=== PATIENT | male | born 1950 | race Caucasian/White ===

== ENCOUNTER 2017-01-28 11:30 | Inpatient (IN) | payer MEDICARE ==
[2017-02-03] MEDS ORDERED: MECLIZINE 25 MG TABLET PO ONE (06:00)
[2017-02-03] MEDS ORDERED: FAMOTIDINE 20MG TABLET PO ONE (06:00)
[2017-02-03] MEDS ORDERED: VANCOMYCIN HCL 1,000 MG in 0.9 % SODIUM CHLORIDE 250ML 250 ML IVPB ONE (06:00)
[2017-02-03] MEDS ORDERED: CELECOXIB 100 MG CAPSULE PO ONE (06:00)
[2017-02-03] MEDS ORDERED: CEFAZOLIN 2 Gram 2 GM/50 ML BAG IVPB ONE (06:00)
[2017-02-03] MEDS ORDERED: METOCLOPRAMIDE 10 MG TABLET PO ONE (06:00)
[2017-02-03] MEDS ORDERED: TRANEXAMIC ACID 1,000 MG/10 ML ML IV ONE (10:43)
[2017-02-03] MEDS ORDERED: 0.9 % SODIUM CHLORIDE 10 ML VIAL IVP ONE (10:43)
[2017-02-03 11:34] LABS: ABO GROUP O; ANTIBODY SCREEN NEGATIVE (NEGATIVE); RH TYPE POSITIVE
[2017-02-03] MEDS ORDERED: HYDROMORPHONE HCL 2 MG/ML VIAL IV ONE (14:00)
[2017-02-03] MEDS ORDERED: PROPOFOL 10 MG/ML VIAL IV ONE (14:00)
[2017-02-03] MEDS ORDERED: BUPIVACAINE 0.75% W/EPI MPF 30ML VIAL IVP ONE (14:00)
[2017-02-03] MEDS ORDERED: FENTANYL PF 100MCG/2ML VIAL IV ONE (14:00)
[2017-02-03] MEDS ORDERED: *PACU ONLY* KETAMINE HCL 10 MG/ML (20ML) VIAL IV ONE (14:00)
[2017-02-03] MEDS ORDERED: KETOROLAC 30 MG/ML VIAL IVP ONE (14:00)
[2017-02-03] MEDS ORDERED: MIDAZOLAM HCL 2MG/2ML VIAL IV ONE (14:00)
[2017-02-03] MEDS ORDERED: AL HYDROX/MAG HYDROX 30ML UD PO PRN (15:10)
[2017-02-03] MEDS ORDERED: HYDROMORPHONE HCL 1MG/ML **SYRINGE IM PRN (15:10)
[2017-02-03] MEDS ORDERED: KETOROLAC 30 MG/ML VIAL IVP PRN ×2 (15:10)
[2017-02-03] MEDS ORDERED: HYDROMORPHONE HCL 2 MG/ML VIAL IM PRN (15:10)
[2017-02-03] MEDS ORDERED: HYDROCODONE/APAP 10/325 TABLET PO PRN ×2 (15:10)
[2017-02-03] MEDS ORDERED: NALOXONE 0.4 MG/1 ML VIAL IVP PRN (15:10)
[2017-02-03] MEDS ORDERED: MAGNESIUM HYDROXIDE 30 ML UDC PO PRN (15:10)
[2017-02-03] MEDS ORDERED: DIPHENHYDRAMINE HCL 25 MG CAPSULE PO PRN (15:10)
[2017-02-03] MEDS ORDERED: ACETAMINOPHEN W/ CODEINE 300MG/60MG TABLET PO PRN ×2 (15:10)
[2017-02-03] MEDS ORDERED: BISACODYL 10 MG SUPP RC PRN (15:10)
[2017-02-03] MEDS ORDERED: ACETAMINOPHEN 325 MG TAB PO PRN (15:10)
[2017-02-03] MEDS ORDERED: ZOLPIDEM TARTRATE 5 MG TABLET PO PRN (15:10)
[2017-02-03] MEDS ORDERED: FLUTICASONE PROPIONATE 50MCG NASAL 16 GM BTL PRN (16:24)
[2017-02-03] MEDS: POTASSIUM CHLORIDE/D5-0.9%NACL 20 MEQ/1,000 ML BAG IV SCH (18:09)
[2017-02-03] MEDS: CEFAZOLIN 2 Gram 2 GM/50 ML BAG IVPB SCH (20:59)
[2017-02-03] MEDS: ONDANSETRON HCL IV 4 MG/2 ML VIAL IVP PRN (21:31)
[2017-02-03] MEDS ORDERED: ASPIRIN 81 MG TABEC PO SCH (22:00)
[2017-02-03] MEDS ORDERED: MONTELUKAST SODIUM 10MG TABLET PO SCH (22:00)
[2017-02-03] MEDS ORDERED: SIMVASTATIN 20 MG TABLET PO SCH (22:00)
[2017-02-03] MEDS ORDERED: ATENOLOL 25 MG TABLET PO SCH (22:00)
[2017-02-03] MEDS ORDERED: LORATADINE 10 MG TABLET PO SCH (22:00)
[2017-02-03] MEDS ORDERED: PANTOPRAZOLE SODIUM 40 MG TABLET PO SCH (22:00)
[2017-02-03] MEDS: GABAPENTIN 300 MG CAPSULE PO SCH (22:37)
[2017-02-03] MEDS: DOCUSATE SODIUM 100 MG CAPSULE PO SCH (22:37)
[2017-02-04] MEDS: ONDANSETRON HCL IV 4 MG/2 ML VIAL IVP PRN (02:46)
[2017-02-04] MEDS: POTASSIUM CHLORIDE/D5-0.9%NACL 20 MEQ/1,000 ML BAG IV SCH ×2 (03:34→10:53)
[2017-02-04] MEDS: CEFAZOLIN 2 Gram 2 GM/50 ML BAG IVPB SCH (04:49)
[2017-02-04 06:54] LABS: HEMATOCRIT 32.9 % (42.0-52.0); HEMOGLOBIN 10.5 gm/dl (14.0-18.0)
[2017-02-04 07:00] LABS: BLOOD UREA NITROGEN 12 mg/dL (8-23); CREATININE 0.7 mg/dL (0.7-1.2); EST GLOMERULAR FILTRATION RATE > 60 mL/min; GLUCOSE,RANDOM 126 mg/dL (74-109)
[2017-02-04] MEDS: GABAPENTIN 300 MG CAPSULE PO SCH (09:33)
[2017-02-04] MEDS: DOCUSATE SODIUM 100 MG CAPSULE PO SCH (09:34)
[2017-02-04] MEDS ORDERED: HYDROCHLOROTHIAZIDE 12.5 MG CAPSULE PO SCH (10:00)
[2017-02-04] MEDS ORDERED: RIVAROXABAN 10 MG TABLET PO SCH (10:00)
[2017-02-04] MEDS ORDERED: LISINOPRIL 20 MG TABLET PO SCH (10:00)
[2017-02-04] MEDS ORDERED: FERROUS SULFATE 325 MG TAB PO SCH (10:00)
--- NOTE | 2017-02-04 10:47 | Rehab Evaluation ---
Patient Information - Patient Information Diagnosis: OA right knee Ordered Treatment: PT Evaluate and Treat Status: Initial Evaluation Surgery: Yes (Right TKA) Date of Surgery: 02/03/17 Past Medical/Surgical Hx: PAST MEDICAL/SURGICAL HISTORY Past Surgical History kidney stone removal Bilat CTR c scope PMH - Respiratory Hx Respiratory Disorders Yes Hx Asthma Yes Hx Bronchitis Yes Hx Pneumonia Yes Comment: uses inhaler only when he is sick PMH - Cardiovascular Hx Cardiovascular Disorders Yes Hx Hypertension Yes: on meds good control Exercise Tolerance Good PMH - Neuro Hx Neurological Disorders Yes Hx Syncope Yes: vasovagal 2-3 years ago PMH - GI Hx Gastrointestinal Disorders Yes Hx Gastroesophageal Reflux Yes PMH - Hx Genitourinary Disorders Yes Hx Kidney Stones Yes PMH - Endocrine Hx Endocrine Disorders No Hx Diabetes No Hx Thyroid Disease No PMH - Musculoskeletal Hx Musculoskeletal Disorders Yes Hx Arthritis Yes PMH - Psych Hx Psychiatric Problems No PMH - Hematology/Oncology Hx Hematology/Oncology No Disorders Social History: Detail (Lives with and has three steps into house, rail to assist into house. House all set-up for him to come home with and starts home PT tomorrow.) Precautions: [place], Fall - Time With Patient Total Time Spent With Patient (Min): 30 Treatment Procedures: Detail (Patient seen bedside, sitting up in chair with warm blanket on shoulders secondary to cold today. Worked on exercises seated in chair: marching type step, LAQ, ankle pumps and isometrics with good tolerance. Sit to stand independently, then ambulated with standard walker about 40 feet to stairs, ambulated down three steps with folded walker and rail with good technique, pivoted back around and ambulated back up three steps with folded walker, rail and CGA only. Ambulated another 75 feet with standard walker then back to room to rest. Opted to get into bed and replaced cryocuff on knee but not compressive stockings on legs secondary to dressed. Replaced tray table and call light close.) Subjective Information - Subjective Information Per Patient (Doing pretty well today and only just now starting to take pain meds. Cold.) Objective Data - Pain Pain Present: Yes Pain Scale Used: Numeric (1 - 10) (3-4/10) - Mental Status Patient Orientation: Oriented x3 - Visual Perception Appears within normal limits for therapeutic activities - ROM Within normal limits (except knee -10 degrees to about 60 degrees.) - Strength/Tone Within normal limits (Quads right 3-/5, hamstrings 4/5, right hip 3/5) - Coordination Appears within normal limits for therapeutic activities (Pretty good today and ambulating well.) - Bed Mobility Independent (Into and out of bed without difficulty.) - Transfers Independent (Sit to stand with SBA only. Stand to sit independently as well.) - Balance Balance Sitting: Good Balance Standing: Good - Sensation Intact - Gait Detail (Using standard walker for gait independently but tends to step into walker too far. Safe so far. Able to do stairs already and did well with rail and folded walker.) - Special Tests No Therapy Assessment - Therapy Assessment Detail (Patient already doing great with exercises, mobility, gait on flat and steps. Has passed all skills needed to be discharged home when nursing and doctor says he is ready.) Patient Education - Patient Education Teaching Topic: Equipment Use, Exercise/Activity Response: Return Demonstration Teaching Method: Discussion Teaching Recipient: Patient, Family Barriers To Learning: None Problem List - Problem List Physical Therapy Problem List: Detail (Some decreased endurance and needs some assist with exercises. Will have home health to progress same.) Goals - Goals Physical Therapy Goals: Continue PT for independence with mobility, gait community distances, exercises as able to tolerate, safety with all activities. Prognosis - Prognosis Good (Very good and patient really has already passed all skills to go home safely with family.) Plan - Plan Physical Therapy Plan: Patient will be seen this afternoon for increase in endurance with gait if still here. Has passed skills to be discharged home if that is best for family.
--- NOTE | 2017-02-04 12:51 | Rehab Evaluation ---
Patient Information - Patient Information Diagnosis: OA right knee Ordered Treatment: OT Evaluate and Treat Status: Initial Evaluation Surgery: Yes (Right TKA) Date of Surgery: 02/03/17 Past Medical/Surgical Hx: PAST MEDICAL/SURGICAL HISTORY Past Surgical History kidney stone removal Bilat CTR c scope PMH - Respiratory Hx Respiratory Disorders Yes Hx Asthma Yes Hx Bronchitis Yes Hx Pneumonia Yes Comment: uses inhaler only when he is sick PMH - Cardiovascular Hx Cardiovascular Disorders Yes Hx Hypertension Yes: on meds good control Exercise Tolerance Good PMH - Neuro Hx Neurological Disorders Yes Hx Syncope Yes: vasovagal 2-3 years ago PMH - GI Hx Gastrointestinal Disorders Yes Hx Gastroesophageal Reflux Yes PMH - Hx Genitourinary Disorders Yes Hx Kidney Stones Yes PMH - Endocrine Hx Endocrine Disorders No Hx Diabetes No Hx Thyroid Disease No PMH - Musculoskeletal Hx Musculoskeletal Disorders Yes Hx Arthritis Yes PMH - Psych Hx Psychiatric Problems No PMH - Hematology/Oncology Hx Hematology/Oncology No Disorders Premorbid Status: Detail (Pt lives with spouse in a 1 story house with basement , he mainly stays on the 1st floor. He has 3 steps and 1 railing at the entrance. He has a walk-in shower with corner seat and grab bar and a standard height toilet without a grab bar. His is responsible for home mgmt, meal prep and laundry, pt is responsible for caring for chickens and dog. He has a standard walker.) Social History: Detail (Supportive .) Precautions: [place], Fall - Time With Patient Total Time Spent With Patient (Min): 35 Treatment Procedures: Detail (OT eval low complexity) Subjective Information - Subjective Information Per Patient Objective Data - Pain Pain Present: Yes (09/06) - Mental Status Patient Orientation: Oriented x3 - Visual Perception Appears within normal limits for therapeutic activities - ROM Within normal limits (Nick UE AROM WNL) - Strength/Tone Within normal limits (Nick UE strength WNL) - Coordination Appears within normal limits for therapeutic activities - Bed Mobility Independent (Ind with supine to sit) - Transfers Independent (Ind with sit to stand from EOB and chair.) - Balance Balance Sitting: Good Balance Standing: Good - Sensation Intact - Gait Detail (Pt ambulating in room with standard walker.) - ADL's/IADL's Detail (Pt educated re: adapted dressing techniques. He was able to demonstrate techniques and was Ind with total body dressing. Reviewed shower safety, pt verbalizes learning.) Therapy Assessment - Therapy Assessment Detail (Pt safe and Ind with self care activities using adapted techniques.) Problem List - Problem List Physical Therapy Problem List: Detail (Some decreased endurance and needs some assist with exercises. Will have home health to progress same.) Occupational Therapy Problem List: Detail (No current OT problems identified.) Goals - Goals Physical Therapy Goals: Continue PT for independence with mobility, gait community distances, exercises as able to tolerate, safety with all activities. Occupational Therapy Goals: No current OT goals identified. Prognosis - Prognosis Good Plan - Plan Physical Therapy Plan: Patient will be seen this afternoon for increase in endurance with gait if still here. Has passed skills to be discharged home if that is best for family. Occupational Therapy Plan: No further IP OT recommended. Thank you for this referral.
--- NOTE | 2017-02-04 15:53 | Operative Note ---
DATE OF SURGERY: 02/03/17 PREOPERATIVE DIAGNOSIS: END-STAGE ARTHROSIS OF THE RIGHT KNEE. POSTOPERATIVE DIAGNOSIS: END-STAGE ARTHROSIS OF THE RIGHT KNEE. PROCEDURE: CEMENTED RIGHT TOTAL KNEE ARTHROPLASTY USING BEGUM-NEPHEW VÍCTOR II COMPONENTS WITH A SIZE 6 OXINIUM FEMUR, A SIZE 5 STEM TIBIAL BASEPLATE, A 9 mm LIFT HIGHLY CROSSLINKED TIBIAL INSERT, AND A 35 MM ALL-PLASTIC PATELLA. STAFF SURGEON: PRESLEY COATES M.D. ANESTHESIA: SPINAL. PREPARATION: CHLORAPREP. INDIVIDUAL CONSIDERATIONS: NONE. PROCEDURE: The patient was taken to the Operating Room and placed supine on the operating table. He had a successful induction of a spinal anesthetic. His right lower extremity was prepped and draped in the usual fashion. Limb was elevated. The tourniquet was inflated to 250 mmHg. Sharp dissection was carried down through the skin and subcutaneous tissues. Small veins were coagulated with a Bovie. A medial arthrotomy was performed. Patella was everted and the knee was flexed. He had exposed bone in the patellofemoral compartment and exposed bone in the medial compartment especially on the femur although the x-rays did not look bad there. The fat pad was resected, ACL was sacrificed, provisional anterior meniscectomies were performed, and the capsule was released from the medial proximal tibia. The initial femoral packing machine pilot can router hole was then made freehand. The intramedullary femoral cutting jig was placed. It was cut in 7.0 degrees of valgus and set for a 10 mm resection and secured with pins. The initial transverse cut was then made. Skin guide was placed for the anterior and posterior packing machine pilot can router holes. It was found that a size 6 would be appropriate. The anterior and posterior cuts followed by chamfer cuts were made , osteophytes removed, and a size 6 trial was placed and found to fit well. The tibia was brought forward and the remainder of the meniscal remnants were removed with a Bovie. The extra-articular tibial cutting jig was placed and it was cut in neutral with a 3-degree AP slope. Care was taken to adjust for rotation and flexion using the extra-articular alignment guide and bony landmarks. It was set for a 9 mm resection and keyed off the high lateral side and secured with pins. When cutting the tibia, care was taken to preserve the PCL insertion on the tibia. Osteophytes were removed and it was found that a size 5 baseplate would fit appropriately. It was adjusted for rotation and secured with pins. With a size 6 femoral trial, the 9 mm lift trial , there was excellent motion and stability. Ligamentous balance, rotation, and alignment were thought to be normal. The femoral packing machine pilot can router holes were impacted and the triflange tibial stamp was impacted, and these trial components were removed. The tourniquet was let down briefly, good bleeders posteriorly, and then placed back up again. The patient had a thick patella and roughly 9 mm of bone was removed with the oscillating saw. A 35 patella fit easily and the three packing machine pilot can router holes were drilled. The knee was then thoroughly irrigated out with pulsatile Betadine and saline to remove any visual or palpable debris. Bony surfaces were then dried. A size 5 stemmed tibial baseplate was cemented into place, followed by impaction of a 9 mm lift tibial insert, followed by cementing in the size 6 Oxinium femur, followed by cementing of a 35 mm patella. Implant surfaces were compressed, excess cement was removed, and after the cement had set, there was excellent motion and stability, ligamentous balance, rotation, alignment, and patellofemoral tracking were normal. No lateral release was required. Again, thorough irrigation with pulsatile Betadine and saline. The tourniquet was let down. Hemostasis was obtained with a Bovie. The periosteum and subcutaneous were infiltrated with 30 mL of 0.5% Marcaine with Epinephrine. The capsule was then closed with a running #2 quill, the subcutaneous was closed with running 0 quill, and the skin was closed with sweetie. The patient did receive 1 gram of Tranexamic Acid preoperatively. I then mixed 1 gram of Tranexamic Acid with 40 mL of saline, injected it into the knee through a sterilely 18-gauge needle, and a sterile [place] compressive dressing, Aquacel- type, was applied. The patient tolerated the procedure well. Needle and sponge counts were correct. Estimated blood loss was minimal and he was taken back to the Recovery Room in good condition. There were no complications. JOB NUMBER: [id number] [facility]
--- NOTE | 2017-02-05 15:48 | Discharge Summary ---
DATE OF ADMISSION: 02/03/17 DATE OF DISCHARGE: 02/04/17 DATE OF SURGERY: 02/03/17 HISTORY: Mr. Drake is a delightful 66-year-old male who presents with end-stage arthrosis of his right knee. He was admitted for right total knee arthroplasty. Postoperatively, he did extremely well. His hospital course was unremarkable. Discharge hemoglobin was 10.5 and did not require transfusion. DISCHARGE INSTRUCTIONS: The plan is to discharge him home with the care of his family. Home PT and Visiting Nurse have been arranged. He will take Xarelto for 15 days for DVT prophylaxis. He will then follow-up with his regular Aspirin. He will be given [place] for pain. He will follow-up in my office in four weeks. Sutures will be removed by the Visiting Nurse in two weeks. FINAL DIAGNOSIS/PRIMARY DIAGNOSIS: END-STAGE ARTHROSIS OF THE RIGHT KNEE. OPERATIONS AND PROCEDURES: CEMENTED RIGHT TOTAL KNEE ARTHROPLASTY. DISCHARGE CONDITION: GOOD. JOB NUMBER: [id number] [facility]
== END 2017-02-04 11:45 | disposition home health service (06) | DRG 470 ==
LOC: MEDSURG 02-03 10:37
PROVIDERS: ADMIT Orthopaedic Surgery; ATTEND Orthopaedic Surgery
PROC: 0SRC06Z Replacement of Right Knee Joint with Oxidized Zirconium on Polyethylene Synthetic Substitute, Open Approach (ICD-10-PCS; principal; 2017-02-03 13:00)
DX: M17.11 Unilateral primary osteoarthritis, right knee (principal); I10 Essential (primary) hypertension; E78.00 Pure hypercholesterolemia, unspecified; Z87.891 Personal history of nicotine dependence
CPT/HCPCS: 80048; 85014; 85018; 86850; 86900; 86901; 97165; J1885; J2405; J3480; J3490; J7050

== ENCOUNTER 2018-08-24 10:36 | Day surgery (SDC) | payer MEDICARE ==
[~2018-08-24 10:36] MED LIST: CEFAZOLIN 2 Gram 2 GM/50 ML BAG IVPB SCH; CELECOXIB 100 MG CAPSULE PO ONE; FAMOTIDINE 20MG TABLET PO ONE; MECLIZINE 25 MG TABLET PO ONE; METOCLOPRAMIDE 10 MG TABLET PO ONE; RINGERS SOLUTION,LACTATED 1,000 ML IV ONE; VANCOMYCIN 1GM/200ML PREMIX 1 GM/200 ML PIGGYBACK IVPB ONE
[2018-08-24] MEDS ORDERED: MIDAZOLAM HCL 2MG/2ML VIAL IV ONE (10:37)
[2018-08-24] MEDS ORDERED: KETAMINE HCL 100MG/1ML VIAL INJ ONE (10:37)
[2018-08-24] MEDS ORDERED: DEXAMETHASONE 4 MG/ML 1ML VIAL IVP ONE (10:37)
[2018-08-24] MEDS ORDERED: TRANEXAMIC ACID 1,000 MG/10 ML ML IV ONE (10:37)
[2018-08-24] MEDS ORDERED: ROPIVACAINE HCL (NAROPIN) /PF 5MG/ML 20ML VIAL IV ONE (10:37)
[2018-08-24] MEDS ORDERED: PROPOFOL 10 MG/ML VIAL IV ONE (10:37)
[2018-08-24] MEDS ORDERED: GLYCOPYRROLATE 0.2 MG/ML ML IV ONE (10:37)
[2018-08-24] MEDS ORDERED: RINGERS SOLUTION,LACTATED 1,000 ML IV ONE ×2 (11:28→16:31)
[2018-08-24 11:46] LABS: ABO GROUP O; ANTIBODY SCREEN NEGATIVE (NEGATIVE); RH TYPE POSITIVE
[2018-08-24] MEDS ORDERED: BUPIVACAINE 0.5% W/EPI MPF 30 ML VIAL SQ ONE (15:19)
[2018-08-24] MEDS ORDERED: ACETAMINOPHEN W/ CODEINE 300MG/60MG TABLET PO PRN ×2 (16:24)
[2018-08-24] MEDS ORDERED: TRAMADOL HCL 50 MG TABLET PO PRN (16:24)
[2018-08-24] MEDS ORDERED: ACETAMINOPHEN 325 MG TAB PO PRN (16:24)
[2018-08-24] MEDS ORDERED: KETOROLAC 30 MG/ML VIAL IVP PRN ×2 (16:24)
[2018-08-24] MEDS ORDERED: NALOXONE 0.4 MG/1 ML VIAL IVP PRN (16:24)
[2018-08-24] MEDS ORDERED: ZOLPIDEM TARTRATE 5 MG TABLET PO PRN (16:24)
[2018-08-24] MEDS ORDERED: MAGNESIUM HYDROXIDE 30 ML UDC PO PRN (16:24)
[2018-08-24] MEDS ORDERED: AL HYDROX/MAG HYDROX 30ML UD PO PRN (16:24)
[2018-08-24] MEDS ORDERED: HYDROMORPHONE HCL 2 MG/ML VIAL IM PRN (16:24)
[2018-08-24] MEDS ORDERED: ONDANSETRON HCL IV 4 MG/2 ML VIAL IVP PRN (16:24)
[2018-08-24] MEDS ORDERED: DIPHENHYDRAMINE HCL 25 MG CAPSULE PO PRN (16:24)
[2018-08-24] MEDS ORDERED: BISACODYL 10 MG SUPP RC PRN (16:24)
[2018-08-24] MEDS ORDERED: HYDROCODONE/APAP 10/325 TABLET PO PRN ×2 (16:24)
[2018-08-24] MEDS: HYDROCHLOROTHIAZIDE 12.5 MG CAPSULE PO SCH (19:13)
[2018-08-24] MEDS: DOCUSATE SODIUM 100 MG CAPSULE PO SCH (21:49)
[2018-08-24] MEDS: LOSARTAN POTASSIUM 25 MG TABLET PO SCH (21:49)
[2018-08-24] MEDS: GABAPENTIN 300 MG CAPSULE PO SCH (21:49)
[2018-08-24] MEDS: CEFAZOLIN 2 Gram 2 GM/50 ML BAG IVPB SCH (21:55)
[2018-08-24] MEDS: POTASSIUM CHLORIDE/D5-0.9%NACL 20 MEQ/1,000 ML BAG IV SCH (21:59)
[2018-08-24] MEDS ORDERED: PANTOPRAZOLE SODIUM 40 MG TABLET PO SCH (22:00)
[2018-08-24] MEDS ORDERED: SIMVASTATIN 20 MG TABLET PO SCH (22:00)
[2018-08-24] MEDS ORDERED: TRAZODONE 50 MG TABLET PO SCH (22:00)
[2018-08-24] MEDS ORDERED: AMLODIPINE BESYLATE 5MG TAB PO SCH (22:00)
[2018-08-24] MEDS ORDERED: ATENOLOL 25 MG TABLET PO SCH (22:00)
[2018-08-25] MEDS: POTASSIUM CHLORIDE/D5-0.9%NACL 20 MEQ/1,000 ML BAG IV SCH (01:31)
[2018-08-25] MEDS: CEFAZOLIN 2 Gram 2 GM/50 ML BAG IVPB SCH ×2 (05:04→14:22)
[2018-08-25] MEDS ORDERED: PANTOPRAZOLE SODIUM 40 MG TABLET PO SCH (07:00)
[2018-08-25] MEDS ORDERED: LEVOTHYROXINE SODIUM 125 MCG TABLET PO SCH (07:00)
[2018-08-25 07:12] LABS: HEMATOCRIT 37.5 % (42.0-52.0); HEMOGLOBIN 12.6 gm/dl (14.0-18.0)
[2018-08-25 07:26] LABS: BLOOD UREA NITROGEN 12 mg/dL (8-23); CREATININE 0.9 mg/dL (0.7-1.2); EST GLOMERULAR FILTRATION RATE > 60 mL/min; GLUCOSE,RANDOM 169 mg/dL (74-109)
[2018-08-25] MEDS: GABAPENTIN 300 MG CAPSULE PO SCH (09:34)
[2018-08-25] MEDS: LOSARTAN POTASSIUM 25 MG TABLET PO SCH (09:34)
[2018-08-25] MEDS: DOCUSATE SODIUM 100 MG CAPSULE PO SCH (09:34)
[2018-08-25] MEDS: HYDROCHLOROTHIAZIDE 12.5 MG CAPSULE PO SCH (09:34)
[2018-08-25] MEDS ORDERED: RIVAROXABAN 10 MG TABLET PO SCH (10:00)
[2018-08-25] MEDS ORDERED: DULOXETINE HCL 30 MG CAPSULE.DR PO SCH (10:00)
[2018-08-25] MEDS ORDERED: METOPROLOL SUCC 25 MG TAB.ER PO SCH (10:00)
[2018-08-25] MEDS ORDERED: FERROUS SULFATE 325 MG TAB PO SCH (10:00)
[2018-08-25] MEDS ORDERED: CHOLECALCIFEROL 1,000 UNIT TABLET PO SCH (10:00)
--- NOTE | 2018-08-25 11:29 | Rehab Evaluation ---
Patient Information - Patient Information Diagnosis: L knee DJD Ordered Treatment: PT Evaluate and Treat Status: Initial Evaluation Surgery: Yes (L knee TKA) Date of Surgery: 08/24/18 Past Medical/Surgical Hx: PAST MEDICAL/SURGICAL HISTORY Surgery to Affected Area? No Recent Surgery? Past Surgical History RTKA 02-03-17 kidney stone removal 1977 Bilat CTR in 1999 (right hand) and in in (Left hand) c scope Lithotropsy 06/2018 PMH - Respiratory Hx Respiratory Disorders Yes Hx Asthma Yes: and hay fever Hx Bronchitis Yes Hx Pneumonia Yes: 2015 Comment: uses inhaler only when he is sick PMH - Cardiovascular Hx Cardiovascular Disorders Yes Hx Hypertension Yes: on meds good control Exercise Tolerance Fair PMH - Neuro Hx Neurological Disorders Yes Hx Syncope Yes: vasovagal 2-3 years ago PMH - GI Hx Gastrointestinal Disorders Yes Hx Gastroesophageal Reflux Yes PMH - Hx Genitourinary Disorders Yes Hx Kidney Stones Yes: lithotropsy in 06/2018 Comment: Had to pass a clot from kidneys from a kidney stone removal in 1977 PMH - Endocrine Hx Endocrine Disorders No Hx Diabetes No Hx Thyroid Disease No PMH - Musculoskeletal Hx Musculoskeletal Disorders Yes Hx Arthritis Yes Hx Musculoskeletal Disease Yes: DJD, spinal stenosis PMH - Psych Hx Psychiatric Problems No PMH - Hematology/Oncology Hx Hematology/Oncology No Disorders Premorbid Status: Detail (The patient was independent with all mobility prior to surgery.) Social History: Detail (The patient lives with spouse in a one story house with 3 -4 steps at the enterance with one railing. The bathroom is equipped with a walk in shower with shower bench and standard height toilet and no grab bars. The patient has a standard walker and standard cane.) Precautions: [place], Fall, Other (WBAT on the L LE) - Time With Patient Total Time Spent With Patient (Min): 30 Treatment Procedures: Detail (Initial Evaluation, gait training) Subjective Information - Subjective Information Per Patient (The patient had complaints of L knee pain, level 2 using 0-10 pain scale.) Objective Data - Mental Status Patient Orientation: Oriented x3 - Visual Perception Appears within normal limits for therapeutic activities - ROM Not within normal limits (The patient's L knee AROM was limited as to be expected s/p surgery. All other AROM is WNL.) - Strength/Tone Not within normal limits (The patient's L LE strength was not tested s/p surgery however was functional ie: patient lifted LE in and out of bed. R LE strength was functional.) - Bed Mobility Independent (The patient was independent with supine to and from sit transfer and scooting up in bed.) - Transfers Independent (The patient was independent with sit to and from stand transfer.) - Balance Balance Sitting: Good Balance Standing: Good - Gait Detail (The patient ambulated with standard walker WBAT on the L LE a distance of 134 feet x 1 independently. The patient ambulated on 3 stairs with supervision for safety using proper technique.) Therapy Assessment - Therapy Assessment Detail (The patient was independent with bed mobility, transfers and ambulation. The patient has met all inpatient goals and is discharged from inpatient PT.) Patient Education - Patient Education Teaching Topic: Exercise/Activity (The patient completed the following TKA HEP including seated and supine heel slides, ankle pumps, quad sets, hamstring sets, SLR, and gluteal sets.) Response: Return Demonstration Teaching Method: Demonstration, Handout Teaching Recipient: Patient Barriers To Learning: None Problem List - Problem List Physical Therapy Problem List: Detail (Decreased L knee AROM and strength as to be expected following surgery.) Goals - Goals Physical Therapy Goals: The patient has met all inpatient PT goals and is to receive Home PT. Prognosis - Prognosis Good Plan - Plan Physical Therapy Plan: The patient is discharged from inpatient PT and is to receive Home PT services.
--- NOTE | 2018-08-25 11:55 | Rehab Evaluation ---
Patient Information - Patient Information Diagnosis: L knee DJD Ordered Treatment: OT Evaluate and Treat Status: Initial Evaluation Surgery: Yes (L knee TKA) Date of Surgery: 08/24/18 Past Medical/Surgical Hx: PAST MEDICAL/SURGICAL HISTORY Surgery to Affected Area? No Recent Surgery? Past Surgical History RTKA 02-03-17 kidney stone removal 1977 Bilat CTR in 1999 (right hand) and in in (Left hand) c scope Lithotropsy 06/2018 PMH - Respiratory Hx Respiratory Disorders Yes Hx Asthma Yes: and hay fever Hx Bronchitis Yes Hx Pneumonia Yes: 2015 Comment: uses inhaler only when he is sick PMH - Cardiovascular Hx Cardiovascular Disorders Yes Hx Hypertension Yes: on meds good control Exercise Tolerance Fair PMH - Neuro Hx Neurological Disorders Yes Hx Syncope Yes: vasovagal 2-3 years ago PMH - GI Hx Gastrointestinal Disorders Yes Hx Gastroesophageal Reflux Yes PMH - Hx Genitourinary Disorders Yes Hx Kidney Stones Yes: lithotropsy in 06/2018 Comment: Had to pass a clot from kidneys from a kidney stone removal in 1977 PMH - Endocrine Hx Endocrine Disorders No Hx Diabetes No Hx Thyroid Disease No PMH - Musculoskeletal Hx Musculoskeletal Disorders Yes Hx Arthritis Yes Hx Musculoskeletal Disease Yes: DJD, spinal stenosis PMH - Psych Hx Psychiatric Problems No PMH - Hematology/Oncology Hx Hematology/Oncology No Disorders Premorbid Status: Detail (The patient was independent with all ADLs and mobility prior to surgery and driving.) Social History: Detail (The patient lives with spouse in a one story house with 3 -4 steps at the entrance with one railing on the left. The bathroom is equipped with a walk in shower, built-in shower bench, hand-held shower, and standard height toilet without grab bars. The patient has a standard walker and single-point cane.) Precautions: [place], Fall, Other (WBAT L LE) - Time With Patient Total Time Spent With Patient (Min): 12 (1 E (9:15 - 9:47)) Treatment Procedures: Detail (OT eval: low complexity) Subjective Information - Subjective Information Per Patient (Ok to see per TWYLA Elder. Pt agreeable to OT eval.) Objective Data - Pain Pain Present: No Pain Scale Used: Numeric (1 - 10) (0/10) - Mental Status Patient Orientation: Oriented x3 - Visual Perception Appears within normal limits for therapeutic activities - ROM Within normal limits - Strength/Tone Within normal limits - Coordination Appears within normal limits for therapeutic activities - Bed Mobility Independent (supine >< EOB) - Transfers Independent (sit >< stand from low surfaces to std. walker CGA progressing to MOD I) - Balance Balance Sitting: Good Balance Standing: Good - Sensation Intact - Gait Detail (Fxl mobility within bedroom with std. walker and CGA progressing to MOD I.) - ADL's/IADL's Detail (OT educ Pt on adaptive tech for LB dressing, Pt doff/dons underwear, socks, pants with MOD I, pullover shirt indep. Pt demos safety and MOD I with simulated walk-in shower TF and verbalizes understanding of kitchen, bathroom, and fxl mobility safety at home.) Therapy Assessment - Therapy Assessment Detail (Pt demos safety and MOD I with LB dressing and verbalizes safe tech. for home tasks with good safety awareness.) Patient Education - Patient Education Response: Return Demonstration, Verbalize Understanding Teaching Method: Discussion, Demonstration Teaching Recipient: Patient Barriers To Learning: None Problem List - Problem List Occupational Therapy Problem List: Detail (No further IP OT needs identified.) Goals - Goals Occupational Therapy Goals: No further IP OT needs/goals identified. Prognosis - Prognosis Good Plan - Plan Occupational Therapy Plan: No further IP OT needs/goals identified. DC IP OT. Rec. DC home with spouse when medically appropriate. Thank you for this referral.
[2018-08-26] MEDS ORDERED: LEVOTHYROXINE SOD 112 MCG TAB PO SCH (07:00)
[2018-08-26] MEDS ORDERED: LEVOTHYROXINE SODIUM 25 MCG TABLET PO SCH (07:00)
--- NOTE | 2018-08-26 07:50 | Operative Note ---
DATE OF SURGERY: 08/24/2018 PREOPERATIVE DIAGNOSIS: End-stage arthrosis of the left knee. POSTOPERATIVE DIAGNOSIS: End-stage arthrosis of the left knee. OPERATION: Cemented left total knee arthroplasty using [employer] II components with a size 6 Oxinium femur, a size 5 stem tibia baseplate, a 13 mm lipped highly crosslinked tibial insert, and a 35 mm all plastic patella. STAFF SURGEON: Michael Guidry MD ANESTHESIA: Spinal. PREPARATION: Chloraprep. INDIVIDUAL CONSIDERATIONS: None. PROCEDURE: The patient was taken to the operating room, placed supine on the operating room table. He had a successful induction of a spinal anesthetic. The left lower extremity was prepped and draped in the usual fashion. The patient had a midline approach to the knee. The limb was elevated and tourniquet was inflated to 250 mmHg. Sharp dissection carried down through skin and subcutaneous tissue. Small veins were coagulated with a Bovie. A medial arthrotomy was performed. The patella was everted and the knee was flexed. The patient had exposed bone at all 3 compartments. Fat pad was resected, ACL was sacrificed, and provisional anterior meniscectomies were performed. The capsule was released from the medial proximal tibia. The initial femoral commercial airplane pilot hole was then made freehand. The intramedullary femoral cutting jig was placed. It was cut in 7.0 degrees of valgus and adjusted for rotation for a 10 mm resection. The initial transverse cut was then made. The skin guide was placed in the anterior and posterior commercial airplane pilot holes. It was found that a size 6 would be appropriate. The anterior and posterior cuts followed by chamfer cuts were made. Osteophytes removed, and a size 6 trial was placed and found to fit well. The tibia was brought forward, and the remainder of the meniscal remnants removed with a Bovie. The extraarticular tibial cutting jig was placed. It was cut in neutral with a 3-degree AP slope. It was set for a 9 mm resection keyed off the high lateral side and secured with pins. When cutting the tibia, care was taken to preserve the PCL insertion on the tibia. It was found that a size 5 would be appropriate. It was adjusted for rotation and secured with pins. With a 13 mm trial and femoral trial, there was excellent motion and stability, ligamentous balance, rotation alignment were thought to be normal. Femoral commercial airplane pilot holes were impacted and tri-flange tibial stamp was impacted, and these trial components were removed. The patient had a relatively thick patella and roughly 9 mm of bone was resected accounting for bone loss and cartilage loss. It was found that a 35 patella would fit appropriately, and the 3 commercial airplane pilot holes were drilled. The tourniquet was let down briefly to get bleeders posteriorly and then placed back up again. The knee was then thoroughly irrigated out with pulsatile Betadine and saline to remove any visual or palpable debris. Bony surfaces were then dried. A size 5 stem tibia baseplate was cemented into place followed by impaction of the 13 mm lipped tibial insert followed by cementing in the size 6 Oxinium femur followed by cementing in the 35 mm patella. The implant surfaces were compressed, excess cement was removed. After the cement had set, there was excellent motion and stability, ligamentous balance, rotation alignment, and patellofemoral tracking were normal. No lateral release was required. After irrigation, tourniquet was let down. Hemostasis was obtained with a Bovie. I infiltrated the skin subcu, and periosteum with 30 mL of 0.5% Marcaine with epinephrine. The capsule was then closed with a running #2 quill, subcu was closed in layers with running 0 quill, skin was closed with sweetie. The patient did receive 1 g of tranexamic acid prior. I mixed 1 g of tranexamic acid with 30 mL of saline and injected into the knee through a sterile 18-gauge needle, and a sterile bulky compressive CHANO-type dressing was applied. The patient tolerated the procedure well. Needle and sponge counts were correct. Estimated blood loss was minimal, and he was taken back to recovery in good condition. There were no complications. JANEY
== END 2018-08-25 15:10 | disposition home or self-care (01) ==
LOC: SUR 10:36 → MEDSURG 17:42 → SUR 08-25 15:10
PROVIDERS: ATTEND Orthopaedic Surgery
DX: M17.12 Unilateral primary osteoarthritis, left knee (principal); I10 Essential (primary) hypertension; M19.90 Unspecified osteoarthritis, unspecified site; E78.00 Pure hypercholesterolemia, unspecified; K21.9 Gastro-esophageal reflux disease without esophagitis; J45.909 Unspecified asthma, uncomplicated
CPT/HCPCS: 76942; 80048; 85014; 85018; 86850; 86900; 86901; J3480; J3490; J7120